=== PATIENT | female | born 1980 | race Caucasian/White ===

== ENCOUNTER → 2018-03-31 08:35 | Outpatient (CLI) | payer OTHER, SELFPAY ==
--- NOTE | 2018-03-31 | DI.US.S_ITS ---
PROCEDURE: US PELVIC COMPLETE INDICATIONS: PELVIC PAIN TECHNIQUE: Real-time scanning was performed of the pelvic organs, with image documentation. Additional endovaginal scanning was necessary due to incomplete visualization of the adnexal and endometrial structures by transabdominal scanning. COMPARISON: None. FINDINGS: Transabdominal scanning: Limited scanning through the kidneys shows no hydronephrosis. No pathologic free abdominal or pelvic fluid. Endovaginal scanning: Uterus: Uterus is normal in size at 8.3 x 5.9 x 7.2 cm. The endometrium measures 17.7 mm in combined thickness. Anterior intramural fibroid measuring 4.4 x 3.9 x 4.1 cm. Ovaries: Ovaries normal in size measuring 3.4 x 1.6 x 4.1 cm on the right and 2.2 x 1.6 x 3.4 cm on the left. There is a regressing physiologic cyst involving the right ovary measuring 17 mm. Simple cyst involves the left ovary measuring 17 mm. IMPRESSION: 1. Thickening of the endometrial complex. Recommend short-term followup pelvic ultrasound in 6-12 weeks to assess for interval thinning. 2. Regressing physiologic right follicular cyst and simple cyst involving the left ovary. 3. 4.4 cm intramural fibroid. Dictated by: Brenden WEISS Interpreted: Garth De La Torre MD on 03/31/2018 at 11:12 Approved by: Garth De La Torre M.D. on 03/31/2018 at 15:15
== END ==
PROVIDERS: PCP Obstetrics & Gynecology; Visit Provider Nurse Practitioner Women's Health
DX: R10.2 Pelvic and perineal pain (principal); D25.1 Intramural leiomyoma of uterus; N83.01 Follicular cyst of right ovary; N83.292 Other ovarian cyst, left side; R93.89 Abnormal findings on diagnostic imaging of other specified body structures
CPT/HCPCS: 76830; 76856

== ENCOUNTER → 2020-06-07 13:33 | Outpatient (CLI) | payer OTHER, MEDICAID, SELFPAY ==
--- NOTE | 2020-06-07 | DI.MG.S_ITS ---
BILATERAL DIGITAL DIAGNOSTIC MAMMOGRAM 3D/2D: 06/07/2020 CLINICAL: Right breast pain. Baseline exam. No prior exams were available for comparison. The tissue of both breasts is heterogeneously dense. This may lower the sensitivity of mammography. No significant masses, calcifications, or other findings are seen in either breast. IMPRESSION: NEGATIVE There is no abnormality seen in the right breast to correspond with the diffuse pain in the lateral aspect, however, clinical correlation is recommended. There is no mammographic evidence of malignancy. A 1 year screening mammogram is recommended. This exam was interpreted at Station ID: [id number]. NOTE: For mammograms, a report in lay terms will be sent to the patient. Approximately 15% of breast malignancies will not be visualized mammographically. In the management of a palpable breast mass, a negative mammogram must not discourage biopsy of a clinically suspicious lesion. Electronically Signed By: Gaurav tyler/chao:06/07/2020 14:11:06 letter sent: Clinical Evaluation ACR BI-RADS Category 1: Negative 3341F
--- NOTE | 2020-06-07 | DI.US.S_ITS ---
PROCEDURE: US PELVIC COMPLETE INDICATIONS: LEFT LOWER QUADRANT PAIN. FERTILITY ASSESSMENT. TECHNIQUE: Real-time scanning was performed of the pelvic organs, with image documentation. Additional endovaginal scanning was necessary due to incomplete visualization of the adnexal and endometrial structures by transabdominal scanning. COMPARISON: [facility], US, US PELVIC COMPLETE, 03/31/2018, 9:10. FINDINGS: Uterus: Uterus is enlarged in size at 10.4 x 9.4 x 6.9 cm. The endometrium measures 8.9 mm in combined thickness. Anterior intramural fibroid increased in size now measuring 7.6 x 7.1 x 4.7 cm, (previously 4.4 x 4.1 x 3.9 cm). Ovaries: The right ovary is not visualized. Left ovary measures 2.8 x 2.2 x 2.4 cm and small follicular cyst is present. Other: No pathologic free abdominal or pelvic fluid. IMPRESSION: 1. Interval increase in size of anterior intramural fibroid now measuring up to 7.6 cm. 2. Right ovary is not visualized. Left ovary is grossly normal. Dictated by: Brenden Arias [facility] Interpreted: Abraham Blank MD on 06/07/2020 at 16:51 Approved by: Abraham Blank M.D. on 06/07/2020 at 17:25
== END ==
PROVIDERS: PCP Obstetrics & Gynecology; Referring Provider Nurse Practitioner Women's Health; Visit Provider Nurse Practitioner Women's Health
DX: N64.4 Mastodynia (principal); D25.1 Intramural leiomyoma of uterus; R10.32 Left lower quadrant pain
CPT/HCPCS: 76830; 76856; 77066; G0279